=== PATIENT | female | born 1990 | race African-American/Black ===

== ENCOUNTER 2017-05-08 05:42 | Emergency (ER) | payer SELFPAY ==
[~2017-05-08] VITALS: Ht 162.6 cm; Wt 72.6 kg
[~2017-05-08 05:42] MED LIST: ACYCLOVIR400 MG ORAL; AMOXICILLIN500 MG ORAL; BACTROBAN 2% OI15 GM TOPIC; IBUPROFEN600 MG ORAL; NORCO 5-325 TA1 EACH ORAL; TRAMADOL HCL50 MG ORAL
[2017-05-08] MEDS ORDERED: NKM (05:57)
[2017-05-08 06:00] VITALS: BP 124/86
[2017-05-08] MEDS ORDERED: Cephalexin 500mg cap ORAL ONE (06:15)
[2017-05-08] MEDS ORDERED: KEFLEX500 MG ORAL (06:16)
--- NOTE | 2017-05-08 06:16 | Emergency Room Report ---
History of Present Illness General Chief Complaint: Female Urogenital Problems Source: Patient Present Illness HPI A 26-year-old female with no circumflex past medical history. She presents with chief complaint of urgency and frequency. His been ongoing for about a week. She try [id number] medication is not helping. Denies any fever chills. Denies any nausea vomiting. Denies any upper back pain. Allergies: Coded Allergies: No Known Allergies (Unverified , 10/11/13) Patient History Past Medical History: see triage record, old chart reviewed Pertinent Family History: none Social History: Denies: smoking Last Menstrual Period: 04/12/17 Now: No : 0 Para: 0 Immunizations: other Reviewed Nursing Documentation: PMH: Agreed, PSxH: Agreed Nursing Documentation-PMH Past Medical History: No Stated History Review of Systems Eye: Denies: eye pain, blurred vision ENT: Denies: ear pain, nose congestion, throat swelling Respiratory: Denies: cough, shortness of breath Cardiovascular: Denies: chest pain, palpitations Gastrointestinal: Denies: abdominal pain, diarrhea, nausea, vomiting Genitourinary: Reports: dysuria, frequency, urgency Musculoskeletal: Denies: back pain, joint pain Skin: Denies: rash Neurological: Denies: headache, numbness Endocrine: Denies: increased thirst, increased urine Hematologic/Lymphatic: Denies: easy bruising All Other Systems: negative except mentioned in HPI Physical Exam Vital Signs Date Time Temp Pulse Resp B/P (MAP) Pulse Ox O2 Delivery O2 Flow Rate FiO2 05/08/17 05:53 97.9 79 14 124/86 95 Room Air vitals normal Sp02 EP Interpretation: reviewed, normal General Appearance: well appearing, no apparent distress, alert Head: normocephalic, atraumatic Eyes: bilateral eye PERRL, bilateral eye EOMI ENT: hearing grossly normal, normal pharynx Neck: full range of motion, supple, no meningismus Respiratory: chest non-tender, lungs clear, normal breath sounds Cardiovascular #1: regular rate, rhythm, no murmur Gastrointestinal: normal bowel sounds, non tender, no mass, no organomegaly, no bruit, non-distended Musculoskeletal: back normal, gait/station normal, normal range of motion Psychiatric: mood/affect normal Skin: warm/dry Medical Decision Making Diagnostic Impression: Primary Impression: UTI (urinary tract infection) Qualified Codes: N30.00 - Acute cystitis without hematuria ER Course She with UTI symptoms. No evidence of pyelonephritis. No evidence of sepsis. We'll discharge home Last Vital Signs Date Time Temp Pulse Resp B/P (MAP) Pulse Ox O2 Delivery O2 Flow Rate FiO2 05/08/17 05:53 97.9 79 14 124/86 95 Room Air Status: improved Disposition: HOME, SELF-CARE Condition: Stable Scripts Cephalexin* (KEFLEX*) 500 Mg Capsule 500 MG ORAL TID, #21 CAP 0 Refills Prov: KALEE TORRES M.D. 05/08/17 Patient Instructions: Urinary Tract Infection Additional Instructions: Followup with your Dr. in 2-3 days if not better. Return if symptom worsen. KALEE TORRES M.D. May 08, 2017 06:16
[2017-05-08 06:30] VITALS: BP 124/86
== END 2017-05-08 06:30 | disposition home or self-care (01) ==
LOC: EMR 06:15
DX: N39.0 Urinary tract infection, site not specified (principal)
CPT/HCPCS: 87086; 99283

== ENCOUNTER 2017-11-07 13:19 | Emergency (ER) | payer MEDICAID ==
[~2017-11-07] VITALS: Ht 162.6 cm; Wt 79.4 kg
[~2017-11-07 13:19] MED LIST changes: +KEFLEX500 MG ORAL; +NKM
[2017-11-07] MEDS ORDERED: NKM (13:28)
[2017-11-07 13:52] VITALS: BP 123/85
[2017-11-07 14:01] LABS: APPEARANCE,URINE SLIGHTLY CLOUDY; BILIRUBIN, URINE NEGATIVE (NEGATIVE); COLOR,URINE YELLOW; GLUCOSE, URINE (UA) NEGATIVE (NEGATIVE); KETONES,URINE NEGATIVE (NEGATIVE); LEUKOCYTE ESTERASE ,URINE 3+ (NEGATIVE); NITRITE,URINE NEGATIVE (NEGATIVE); PH,URINE 6 (4.5-8.0); PROTEIN,URINE NEGATIVE (NEGATIVE); UROBILINOGEN,URINE NORMAL MG/DL (0.0-1.0)
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
[2017-11-07] MEDS ORDERED: NITROFURANTOIN100 M2 ORAL (14:19)
[2017-11-07] MEDS ORDERED: PHENAZOPYRIDIN200 MG ORAL (14:19)
[2017-11-07] MEDS ORDERED: SOMA250 MG PO (14:19)
[2017-11-07] MEDS ORDERED: IBUPROFEN600 MG ORAL (14:19)
[2017-11-07] MEDS ORDERED: ROBAXIN-750750 MG PO (14:19)
[2017-11-07 14:43] VITALS: BP 123/85
== END 2017-11-07 14:44 | disposition home or self-care (01) ==
LOC: EMR 13:45
DX: S16.1XXA Strain of muscle, fascia and tendon at neck level, initial encounter (principal); V43.52XA Car driver injured in collision with other type car in traffic accident, initial encounter; Y92.410 Unspecified street and highway as the place of occurrence of the external cause; N39.0 Urinary tract infection, site not specified
CPT/HCPCS: 81003; 87086; 99284

== ENCOUNTER 2018-07-30 17:51 | Emergency (ER) | payer MEDICAID ==
[~2018-07-30] VITALS: Ht 162.6 cm; Wt 81.6 kg
[~2018-07-30 17:51] MED LIST changes: +NITROFURANTOIN100 M2 ORAL; +PHENAZOPYRIDIN200 MG ORAL; +ROBAXIN-750750 MG PO; +SOMA250 MG PO
--- NOTE | 2018-07-30 18:15 | NUR ---
ED Nurse Note: PT WALKED IN TO ER TODAY FROM HOME. AOX4. PT C/O BILATERAL BREAST PAIN, 01/19 X 1.5 WEEKS AGO. PT ALSO STATES SHE HAD AN EPISODE OF VOMITING X RIGHT BEFORE ENTERING HOSPITAL. PT DENIES DIARRHEA. ACTIVE BOWEL SOUNDS IN ALL QUADRANTS. ABDOMEN NONDISTENDED AND NONTENDER TO PALPATION.
[2018-07-30 18:16] VITALS: BP 122/76
--- NOTE | 2018-07-30 18:23 | Emergency Room Report ---
History of Present Illness General Chief Complaint: Pain Source: Patient Present Illness HPI 28-year-old female patient presents the ER complaining of bilateral breasts tenderness for the past few days. Denies acute injury or trauma. Denies swelling or rash. Denies nipple discharge. Reports history of similar symptoms in the past when she was . Reports last menstrual period was over a month ago. Denies abdominal pain. Denies dysuria, hematuria. Denies vaginal discharge. States is not taking any control medications. Reports that she had one episode of vomiting when she arrived to the ER. Denies hematemesis. Denies recent travel outside the country. Denies fever, chest pain, shortness of breath. Allergies: Coded Allergies: No Known Allergies (Unverified , 10/11/13) Patient History Past Medical History: see triage record Last Menstrual Period: 06/19/18 Now: No - Not sure Reviewed Nursing Documentation: PMH: Agreed; PSxH: Agreed Nursing Documentation-PMH Past Medical History: No Stated History Review of Systems All Other Systems: negative except mentioned in HPI Physical Exam Vital Signs Date Time Temp Pulse Resp B/P (MAP) Pulse Ox O2 Delivery O2 Flow Rate FiO2 07/30/18 18:02 98.1 75 20 119/76 99 Room Air Sp02 EP Interpretation: reviewed, normal General Appearance: well appearing, no apparent distress, alert, GCS 15, non- toxic Head: normocephalic, atraumatic Eyes: bilateral eye normal inspection, bilateral eye PERRL ENT: hearing grossly normal, normal pharynx, no angioedema, normal voice, uvula midline, moist mucus membranes Neck: full range of motion Respiratory: lungs clear, normal breath sounds, no rhonchi, no respiratory distress, no accessory muscle use, no wheezing, speaking full sentences, other - No erythema or edema bilateral breast, no nipple discharge, no palpable masses , no lymphadenopathy Cardiovascular #1: regular rate, rhythm, no edema Gastrointestinal: non tender, soft, no mass, non-distended, no guarding, no rebound Genitourinary: no CVA tenderness Musculoskeletal: back normal, digits/nails normal, gait/station normal, normal range of motion, non-tender Neurologic: alert, oriented x3, responsive, motor strength/tone normal, sensory intact Skin: no rash Medical Decision Making PA Attestation Dr. Mayfield is my supervising Physician whom patient management has been discussed with. Diagnostic Impression: Primary Impression: ER Course Pt. presents to the ED c/o breast tenderness and one episode of vomiting. Ddx considered but are not limited to , cellulitis, abscess, mastitis. Vital signs: are WNL, pt. 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 Does not require antibiotics at this time. UA unremarkable, no signs of infection. Urine positive. Informed patient to follow-up with [facility] in the next 2-3 days. Take Tylenol for pain symptoms. ER precautions given. Patient denies abdominal pain, vaginal bleeding, does not require ultrasound imaging at this time. Patient not vomiting while in the ER, advised to follow-up with [facility] specialist discussed need for emesis medication. DISCHARGE: At this time pt is stable for d/c to home. Patient is resting comfortably, in no acute distress, nontoxic appearing, talking without difficulty. Patient to take medications as instructed Will provide with patient care instructions and any necessary prescriptions. Care plan and follow-up instructions provided. Patient instructed to follow-up with primary care provider in 3 - 5 days. Patient questions asked and answered. Patient reports understanding and agreement to treatment plan. ER precautions given. Patient instructed to return to ER immediately for any new or worsening of symptoms including but not limited to increasing SOB, persistent fever, chest pain, intractable vomiting. - Please note that this Emergency Department Report was dictated using [employer] technology software, occasionally this can lead to erroneous entry secondary to interpretation by the dictation equipment. Labs Test 07/30/18 18:12 Urine Color Pale yellow Urine Appearance Clear Urine pH 8 (4.5-8.0) Urine Specific [place] 1.015 (1.005-1.035) Urine Protein Negative (NEGATIVE) Urine Glucose (UA) Negative (NEGATIVE) Urine Ketones Negative (NEGATIVE) Urine Blood Negative (NEGATIVE) Urine Nitrite Negative (NEGATIVE) Urine Bilirubin Negative (NEGATIVE) Urine Urobilinogen Normal MG/DL (0.0-1.0) Urine Leukocyte Esterase Negative (NEGATIVE) Urine HCG, Qualitative Positive (NEGATIVE) Last Vital Signs Date Time Temp Pulse Resp B/P (MAP) Pulse Ox O2 Delivery O2 Flow Rate FiO2 07/30/18 18:16 98.4 74 18 122/76 98 Room Air Disposition: HOME, SELF-CARE Condition: Stable Scripts Acetaminophen* (TYLENOL EXTRA STRENGTH*) 500 Mg Tablet 500 MG ORAL Q8H PRN for Prn Headache/Temp > 101, #30 TAB 0 Refills Prov: Humberto Perez 07/30/18 Patient Instructions: First Trimester of , [id number] Additional Instructions: Followup with OBGYN in 1-2 days. Take medications as directed. Take Tylenol for pain, do not take Ibuprofen. Patient questions asked and answered. ER precautions given, patient instructed to return to ER immediately for any new or worsening of symptoms including but not limited to chest pain, SOB, intractable vomiting, profuse vaginal bleeding, abdominal pain. Humberto Perez Jul 30, 2018 18:23
[2018-07-30 18:56] LABS: APPEARANCE,URINE CLEAR; BILIRUBIN, URINE NEGATIVE (NEGATIVE); COLOR,URINE PALE YELLOW; GLUCOSE, URINE (UA) NEGATIVE (NEGATIVE); KETONES,URINE NEGATIVE (NEGATIVE); LEUKOCYTE ESTERASE ,URINE NEGATIVE (NEGATIVE); NITRITE,URINE NEGATIVE (NEGATIVE); PH,URINE 8 (4.5-8.0); PROTEIN,URINE NEGATIVE (NEGATIVE); UROBILINOGEN,URINE NORMAL MG/DL (0.0-1.0)
--- NOTE | 2018-07-30 19:01 | NUR ---
ED Nurse Note: REPORT GIVEN TO STAS LOPEZ.
[2018-07-30] MEDS ORDERED: TYLENOL EXTRA500 MG ORAL (19:10)
[2018-07-30 19:19] VITALS: BP 125/72
--- NOTE | 2018-07-30 19:21 | NUR ---
ER DISCHARGE NOTE: Patient is cleared to be discharged per ERMD, pt is aox4, on room air, with stable vital signs. pt was given dc and prescription instructions, pt was able to verbalize understanding, pt id band and iv site removed without complications. pt is able to ambulate with steady gait. pt took all belongings.
== END 2018-07-30 19:32 | disposition home or self-care (01) ==
LOC: EMR 18:30
DX: O26.891 Other specified pregnancy related conditions, first trimester (principal); Z3A.00 Weeks of gestation of pregnancy not specified; N64.4 Mastodynia
CPT/HCPCS: 81003; 81025; 99283

== ENCOUNTER 2019-04-11 20:30 | Emergency (ER) | payer MEDICAID ==
[~2019-04-11] VITALS: Ht 162.6 cm; Wt 90.7 kg
[~2019-04-11 20:30] MED LIST changes: +TYLENOL EXTRA500 MG ORAL
[2019-04-11 20:45] VITALS: BP 129/82
--- NOTE | 2019-04-11 20:45 | NUR ---
ED Nurse Note: Patient walked in due to right side pain, difficulty breathing since today. pt gave mar 30. No stated medical history. alert and oriented, verbally responisve. No SOB. VSS.
[2019-04-11] MEDS ORDERED: Omnipaue 350mg/ml 100ml vial INJ PRN (21:00)
[2019-04-11] MEDS ORDERED: Morphine Sulfate 4mg/ml Inj (IV USE ONLY) IVP ONE (21:00)
--- NOTE | 2019-04-11 21:10 | Emergency Room Report ---
History of Present Illness General Chief Complaint: Dyspnea/Respdistress Source: Patient Present Illness HPI This is a 28-year-old female who had a recent but is not breast- feeding. She presents with chief complaint of right upper back pain. Onset for last 2-day. Pain is sharp. Also radiated to the chest area and feels short of breath. No trauma. No fever chills but no trauma. No cough. Worse with inspiration. She also has a rash on her abdomen ever since her . This been almost 2 weeks now. No fever chills. Itching. Allergies: Coded Allergies: No Known Allergies (Unverified , 10/11/13) Patient History Past Medical History: see triage record, old chart reviewed Past Surgical History: Pertinent Family History: none Social History: Denies: smoking Now: No Immunizations: other Reviewed Nursing Documentation: PMH: Agreed; PSxH: Agreed Nursing Documentation-PMH Past Medical History: No Stated History Review of Systems Eye: Denies: eye pain, blurred vision ENT: Denies: ear pain, nose congestion, throat swelling Respiratory: Reports: shortness of breath; Denies: cough Cardiovascular: Reports: chest pain; Denies: palpitations Gastrointestinal: Denies: abdominal pain, diarrhea, nausea, vomiting Musculoskeletal: Denies: back pain, joint pain Skin: Reports: rash Neurological: Denies: headache, numbness Endocrine: Denies: increased thirst, increased urine Hematologic/Lymphatic: Denies: easy bruising All Other Systems: negative except mentioned in HPI Physical Exam Vital Signs Date Time Temp Pulse Resp B/P (MAP) Pulse Ox O2 Delivery O2 Flow Rate FiO2 04/11/19 20:39 98.4 87 18 129/82 (98) 96 Room Air Vitals normal Sp02 EP Interpretation: reviewed, normal General Appearance: well appearing, no apparent distress, alert Head: normocephalic, atraumatic Eyes: bilateral eye PERRL, bilateral eye EOMI ENT: hearing grossly normal, normal pharynx Neck: full range of motion, supple, no meningismus Respiratory: chest non-tender, lungs clear, normal breath sounds Cardiovascular #1: regular rate, rhythm, no murmur Gastrointestinal: normal bowel sounds, non tender, no mass, no organomegaly, no bruit, non-distended, other - Abdominal wall with erythema around the umbilicus. No abscess. No crepitance. Musculoskeletal: back normal, gait/station normal, normal range of motion Psychiatric: mood/affect normal Medical Decision Making Diagnostic Impression: Primary Impression: Pulmonary embolism Qualified Codes: I26.93 - Single subsegmental pulmonary embolism without acute cor pulmonale Additional Impression: Abdominal wall cellulitis ER Course She presents with acute onset of right chest pain. She recently had a C- section and control implants placed on her left upper arm. She has a single sub-segmental pulmonary embolism within the right lower lobe. Lovenox given here. She also has cellulitis to her abdominal wall. Rocephin given here. Will admit versus transfer based on her insurance. Discussed the case with Dr. Mendoza who accepted pt for transfer to [place]. Rhythm Strip Diag. Results EP Interpretation: yes Rate: 69 Rhythm: NSR, no PVC's, no ectopy CT/MRI/US Diagnostic Results CT/MRI/US Diagnostic Results : Imaging Test Ordered: CT chest Impression Read by radiologist. Single subsegmental pulmonary embolism in the right lower lobe. Last Vital Signs Date Time Temp Pulse Resp B/P (MAP) Pulse Ox O2 Delivery O2 Flow Rate FiO2 04/11/19 20:39 98.4 87 18 129/82 (98) 96 Room Air Status: improved Disposition: ER [facility] Condition: Stable Bry Smith MD Apr 11, 2019 21:10
[2019-04-11 21:27] LABS: BASOPHILS % (AUTO) 0.8 % (0.0-2.0); EOSINOPHILS % (AUTO) 1.8 % (0.0-3.0); HEMOGLOBIN 10.1 G/DL (12.0-16.0); MEAN CORPUSCULAR VOLUME 85 FL (80-99); MONOCYTES % (AUTO) 5.6 % (1.0-10.0); NEUTROPHILS % (AUTO) 73.8 % (45.0-75.0); PLATELET COUNT 358 K/UL (150-450); RED CELL DISTRIBUTION WIDTH 12.5 % (11.6-14.8); WHITE BLOOD COUNT 10.2 K/UL (4.8-10.8)
[2019-04-11 21:29] LABS: APPEARANCE,URINE SLIGHTLY CLOUDY; BILIRUBIN, URINE NEGATIVE (NEGATIVE); COLOR,URINE PALE YELLOW; GLUCOSE, URINE (UA) NEGATIVE (NEGATIVE); KETONES,URINE NEGATIVE (NEGATIVE); LEUKOCYTE ESTERASE ,URINE 2+ (NEGATIVE); NITRITE,URINE NEGATIVE (NEGATIVE); PH,URINE 7 (4.5-8.0); PROTEIN,URINE 1+ (NEGATIVE); UROBILINOGEN,URINE NORMAL MG/DL (0.0-1.0)
[2019-04-11 21:37] LABS: ANION GAP 11 mmol/L (5-15); BLOOD UREA NITROGEN 14 mg/dL (7-18); CALCIUM 9.3 MG/DL (8.5-10.1); CARBON DIOXIDE 27 MMOL/L (21-32); CHLORIDE 104 MMOL/L (98-107); CREATININE 0.8 MG/DL (0.55-1.30); POTASSIUM 3.7 MMOL/L (3.5-5.1); SODIUM 142 MMOL/L (136-145)
--- NOTE | 2019-04-11 21:53 | NUR ---
ED Nurse Note: Pt taken for CT.
--- NOTE | 2019-04-11 22:10 | NUR ---
ED Nurse Note: Pt came back from CT.
--- NOTE | 2019-04-11 22:26 | Diagnostic Imaging Report ---
ndication: Reason For Exam: CP Technique: IV administration nonionic contrast. Spiral acquisitions obtained from the lung bases to the lung apices. Multiplanar and 3-D reconstructions were generated. Total dose length product 707 mGycm. CTDIvol(s) 71, 57, 17 mGy. Dose reduction achieved using automated exposure control Comparison: none Findings: A filling defect is seen in the right lower lobe posterior segmental branch. No other definite filling defects are evident. The pulmonary artery is normal in caliber. No evidence of thoracic aortic aneurysm or dissection. The great neck vessels are normal in caliber. The included visceral vessels are normal in caliber. Scarring or atelectasis is seen at the lung bases, right greater than left. Small subpleural blebs are seen in the periphery of the upper lobes bilaterally, left greater than right. The heart size is normal. No pericardial effusion. No mediastinal or hilar mass or adenopathy. No axillary or chest wall mass or adenopathy. The thyroid is unremarkable. The included upper abdominal viscera are unremarkable. Impression: Positive for right lower lobe posterior basilar segmental pulmonary embolus No acute process otherwise Bilateral basilar scarring or atelectasis Bilateral small subpleural blebs The CT scanner at [facility] is accredited by the [employer] and the scans are performed using protocols designed to limit radiation exposure to as low as reasonably achievable to attain images of sufficient resolution adequate for diagnostic evaluation.
[2019-04-11] MEDS ORDERED: Enoxaparin 100mg Inj SUBQ ONE (22:45)
[2019-04-11] MEDS ORDERED: cefTRIAXone 1 GM in NS 55 ML IVPB ONE (22:45)
[2019-04-11 23:51] VITALS: BP 126/80
[2019-04-12 02:46] VITALS: BP 115/70
[2019-04-12 02:47] VITALS: BP 115/70
--- NOTE | 2019-04-12 02:47 | NUR ---
ED Nurse Note: Patient cleared by ERMD to be transferred to [place], accompanied by 2 EMT from [facility] via [facility]. Report given to April RN. Pt alert and oriented, verbally responisve. No SOB. 99% RA. Afebrile. IV line on right AC 20g patent and intact. VSS. Family member aware of the transfer.
== END 2019-04-11 22:47 | disposition short-term general hospital (02) ==
LOC: EMR 21:03
DX: I26.93 Single subsegmental thrombotic pulmonary embolism without acute cor pulmonale (principal); L03.311 Cellulitis of abdominal wall
CPT/HCPCS: 36415; 71275; 80048; 81001; 81025; 85025; 96365; 96372; 96375; J0696; J1650; J2270; J2405; Q9967; Z7502; 99284

== ENCOUNTER 2019-08-21 10:44 | Emergency (ER) | payer MEDICAID ==
[~2019-08-21] VITALS: Ht 162.6 cm; Wt 77.1 kg
[2019-08-21 10:55] VITALS: BP 114/72
--- NOTE | 2019-08-21 11:00 | NUR ---
ED Nurse Note: patient walked into ED from home c/o left lower quadrant pain that started yesterday. patient c/o n/v/d denies any fever. patient is alert awake x4 ambulatory, breathing unlabored and even, speaking in full sentences.
[2019-08-21 11:24] LABS: APPEARANCE,URINE SLIGHTLY CLOUDY; BILIRUBIN, URINE NEGATIVE (NEGATIVE); GLUCOSE, URINE (UA) NEGATIVE (NEGATIVE); KETONES,URINE NEGATIVE (NEGATIVE); LEUKOCYTE ESTERASE ,URINE 2+ (NEGATIVE); NITRITE,URINE NEGATIVE (NEGATIVE); PH,URINE 5 (4.5-8.0); PROTEIN,URINE 1+ (NEGATIVE); UROBILINOGEN,URINE NORMAL MG/DL (0.0-1.0)
--- NOTE | 2019-08-21 11:32 | Emergency Room Report ---
History of Present Illness General Chief Complaint: Abdominal Pain Source: Patient Present Illness HPI 29-year-old female presents with left lower quadrant pain x1 day started last night no known aggravating or alleviating factors, no vaginal discharge no vaginal bleeding patient states she recently completed her period severity is moderate, intermittent, she endorses cramps no nausea no vomiting no chest pain or shortness of breath no fevers no chills patient presents for evaluation Allergies: Coded Allergies: No Known Allergies (Unverified , 10/11/13) Patient History Past Medical History: see triage record Last Menstrual Period: august Now: No Reviewed Nursing Documentation: PMH: Agreed; PSxH: Agreed Nursing Documentation-PMH Past Medical History: No History, Except For Review of Systems All Other Systems: negative except mentioned in HPI Physical Exam Vital Signs Date Time Temp Pulse Resp B/P (MAP) Pulse Ox O2 Delivery O2 Flow Rate FiO2 08/21/19 10:55 98.2 86 20 114/72 98 Room Air Sp02 EP Interpretation: reviewed, normal General Appearance: well appearing, no apparent distress, alert Head: normocephalic, atraumatic Eyes: bilateral eye PERRL, bilateral eye EOMI ENT: uvula midline, moist mucus membranes Neck: supple, thyroid normal, supple/symm/no masses Respiratory: lungs clear, no respiratory distress, no retraction, no accessory muscle use Cardiovascular #1: normal peripheral pulses, regular rate, rhythm, no edema, no gallop, no murmur Gastrointestinal: soft, no guarding, no rebound, tenderness - Mild tenderness to palpation left lower quadrant Musculoskeletal: normal inspection Neurologic: alert, oriented x3 Psychiatric: mood/affect normal Skin: no rash, warm/dry Medical Decision Making Diagnostic Impression: Primary Impression: Abdominal pain Qualified Codes: R10.32 - Left lower quadrant pain ER Course 29-year-old female presents with left lower quadrant pain differential diagnosis includes diverticulitis, ovarian cyst, hemorrhagic cyst patient was given Toradol with significant improvement in pain transvaginal ultrasound unremarkable no evidence of infection patient is asymptomatic patient on multiple re-evaluations was on her cell phone counseled patient that if she worsens to return to the ED will provide her with a pain regimen, additionally patient also reports that she had her period a few days ago Laboratory Tests Test 08/21/19 11:00 08/21/19 11:20 Urine Color Yellow Urine Appearance Slightly cloudy Urine pH 5 (4.5-8.0) Urine Specific [place] 1.020 (1.005-1.035) Urine Protein 1+ (NEGATIVE) H Urine Glucose (UA) Negative (NEGATIVE) Urine Ketones Negative (NEGATIVE) Urine Blood Negative (NEGATIVE) Urine Nitrite Negative (NEGATIVE) Urine Bilirubin Negative (NEGATIVE) Urine Urobilinogen Normal MG/DL (0.0-1.0) Urine Leukocyte Esterase 2+ (NEGATIVE) H Urine RBC 0-2 /HPF (0 - 2) Urine WBC 2-4 /HPF (0 - 2) Urine Squamous Epithelial Cells Moderate /LPF (NONE/OCC) H Urine Bacteria Few /HPF (NONE) Urine Mucus Few /LPF (NONE/OCC) H Urine HCG, Qualitative Negative (NEGATIVE) White Blood Count 10.2 K/UL (4.8-10.8) Red Blood Count 3.63 M/UL (4.20-5.40) L Hemoglobin 10.7 G/DL (12.0-16.0) L Hematocrit 30.7 % (37.0-47.0) L Mean Corpuscular Volume 85 FL (80-99) Mean Corpuscular Hemoglobin 29.5 PG (27.0-31.0) Mean Corpuscular Hemoglobin Concent 34.8 G/DL (32.0-36.0) Red Cell Distribution Width 12.0 % (11.6-14.8) Platelet Count 306 K/UL (150-450) Mean Platelet Volume 7.5 FL (6.5-10.1) Neutrophils (%) (Auto) 74.6 % (45.0-75.0) Lymphocytes (%) (Auto) 17.6 % (20.0-45.0) L Monocytes (%) (Auto) 5.7 % (1.0-10.0) Eosinophils (%) (Auto) 1.2 % (0.0-3.0) Basophils (%) (Auto) 0.8 % (0.0-2.0) Sodium Level 139 MMOL/L (136-145) Potassium Level 3.3 MMOL/L (3.5-5.1) L Chloride Level 104 MMOL/L (98-107) Carbon Dioxide Level 27 MMOL/L (21-32) Anion Gap 8 mmol/L (5-15) Blood Urea Nitrogen 14 mg/dL (7-18) Creatinine 1.0 MG/DL (0.55-1.30) Estimate Glomerular Filtration Rate > 60 mL/min (>60) Glucose Level 73 MG/DL (74-106) L Calcium Level 8.7 MG/DL (8.5-10.1) Total Bilirubin 0.7 MG/DL (0.2-1.0) Aspartate Amino Transferase (AST) 21 U/L (15-37) Alanine Aminotransferase (ALT) 26 U/L (12-78) Alkaline Phosphatase 78 U/L (46-116) Total Protein 7.3 G/DL (6.4-8.2) Albumin 3.5 G/DL (3.4-5.0) Globulin 3.8 g/dL Albumin/Globulin Ratio 0.9 (1.0-2.7) L Lipase 114 U/L (73-393) Human Chorionic Gonadotropin, Quant < 1 mIU/mL (1-6) L CT/MRI/US Diagnostic Results CT/MRI/US Diagnostic Results : Impression Procedure: US Transvaginal (Non ) Indication: Abdominal pain, left lower quadrant pain, negative test Technique: Transabdominal and transvaginal images of the pelvis Doppler interrogation of the ovaries Comparison: Findings: Transabdominal exam is somewhat limited due to lack of bladder distention. Uterus measures 8.8 cm length by 4.7 cm AP. The endometrium measures 5 mm thick. Unremarkable myometrium. Nabothian cysts are seen in the cervix. The right ovary measures 5 cm in length. The left ovary measures 3 cm in length. No adnexal mass. Normal ovarian blood flow on Doppler. No free cul-de-sac fluid Impression: Essentially unremarkable exam Incidental finding of cervical nabothian cysts Dictated By: Yeison Gonzales MD Electronically Signed By: Yeison Gonzales MD Signed Date/Time 08/21/19 1240 CC: Perico Tillman MD Last Vital Signs Date Time Temp Pulse Resp B/P (MAP) Pulse Ox O2 Delivery O2 Flow Rate FiO2 08/21/19 11:26 86 20 Room Air 08/21/19 10:55 98.2 114/72 (86) 98 Disposition: HOME, SELF-CARE Condition: Stable Scripts Ibuprofen* (MOTRIN*) 600 Mg Tablet 600 MG ORAL Q8H PRN for For Pain, #30 TAB 0 Refills Prov: Perico Tillman MD 08/21/19 Referrals: [facility] Ricki Bravo. [facility] Patient Instructions: Abdominal Pain, Adult Additional Instructions: The patient was provided with discharge instructions, notified to follow-up with a primary care doctor and or specialist in the next 24-48 hours, and to return to the ED if they have worsening of their symptoms. Please note that this report is being documented using [employer], a [employer] technology. This can lead to erroneous entry secondary to incorrect interpretation by the dictating instrument. Perico Tillman MD Aug 21, 2019 11:32
[2019-08-21 11:34] LABS: COLOR,URINE YELLOW
[2019-08-21] MEDS ORDERED: Acetaminophen 500mg (ES) tab ORAL ONE (11:45)
[2019-08-21] MEDS ORDERED: Ketorolac 30mg Inj IV ONE ×2 (11:45→12:00)
--- NOTE | 2019-08-21 11:48 | NUR ---
ED Nurse Note: had to waste toradol 30mg due to dropping on the floor. notified to NATALIIA.
[2019-08-21 12:04] LABS: BASOPHILS % (AUTO) 0.8 % (0.0-2.0); EOSINOPHILS % (AUTO) 1.2 % (0.0-3.0); HEMATOCRIT 30.7 % (37.0-47.0); HEMOGLOBIN 10.7 G/DL (12.0-16.0); LYMPHOCYTES % (AUTO) 17.6 % (20.0-45.0); MEAN CORPUSCULAR VOLUME 85 FL (80-99); MONOCYTES % (AUTO) 5.7 % (1.0-10.0); NEUTROPHILS % (AUTO) 74.6 % (45.0-75.0); PLATELET COUNT 306 K/UL (150-450); RED BLOOD COUNT 3.63 M/UL (4.20-5.40); WHITE BLOOD COUNT 10.2 K/UL (4.8-10.8)
[2019-08-21 12:16] LABS: ANION GAP 8 mmol/L (5-15); BLOOD UREA NITROGEN 14 mg/dL (7-18); CALCIUM 8.7 MG/DL (8.5-10.1); CARBON DIOXIDE 27 MMOL/L (21-32); CHLORIDE 104 MMOL/L (98-107); POTASSIUM 3.3 MMOL/L (3.5-5.1); SODIUM 139 MMOL/L (136-145)
[2019-08-21 12:20] LABS: ALANINE AMINOTRANSFERASE 26 U/L (12-78); ALBUMIN 3.5 G/DL (3.4-5.0); ALBUMIN/GLOBULIN RATIO 0.9 (1.0-2.7); ALKALINE PHOSPHATASE 78 U/L (46-116); ASPARTATE AMINO TRANSFERASE 21 U/L (15-37); BILIRUBIN,TOTAL 0.7 MG/DL (0.2-1.0)
--- NOTE | 2019-08-21 12:45 | Diagnostic Imaging Report ---
Indication: Abdominal pain, left lower quadrant pain, negative test Technique: Transabdominal and transvaginal images of the pelvis Doppler interrogation of the ovaries Comparison: Findings: Transabdominal exam is somewhat limited due to lack of bladder distention. Uterus measures 8.8 cm length by 4.7 cm AP. The endometrium measures 5 mm thick. Unremarkable myometrium. Nabothian cysts are seen in the cervix. The right ovary measures 5 cm in length. The left ovary measures 3 cm in length. No adnexal mass. Normal ovarian blood flow on Doppler. No free cul-de-sac fluid Impression: Essentially unremarkable exam Incidental finding of cervical nabothian cysts
[2019-08-21] MEDS ORDERED: IBUPROFEN600 MG ORAL (13:10)
[2019-08-21 13:20] VITALS: BP 114/72
--- NOTE | 2019-08-21 13:20 | NUR ---
ER DISCHARGE NOTE: Patient is cleared to be discharged per ERMD DR HERNANDEZ, pt is aox4, on room air, with stable vital signs. pt was given dc and prescription instructions, pt was able to verbalize understanding, pt id band and iv site removed without complications. pt is able to ambulate with steady gait. pt took all belongings.
== END 2019-08-21 13:19 | disposition home or self-care (01) ==
LOC: EMR 12:00
DX: R10.32 Left lower quadrant pain (principal)
CPT/HCPCS: 36415; 76830; 76856; 80053; 81003; 81025; 83690; 84702; 85025; 96374; J1885; Z7502; 99284